=== PATIENT | female | born 1945 | race Caucasian/White ===

== ENCOUNTER → 2017-10-30 | Outpatient (CLI) | payer MEDICARE, OTHER ==
[2017-10-30 12:43] LABS: ALANINE AMINOTRANSFERASE 36 U/L (12-78); ALBUMIN 3.9 g/dL (3.4-5.0); ANION GAP 6 mmol/L (5-15); CALCIUM 8.6 mg/dL (8.5-10.1); CHLORIDE 108 mmol/L (98-107); CHOLESTEROL, TOTAL 194 mg/dL (140-239); CREATININE 0.93 mg/dL (0.55-1.02); TRIGLYCERIDES 329 mg/dL (50-200); VLDL CHOLESTEROL 66 mg/dL (0-25)
[2017-10-30 12:47] LABS: ALKALINE PHOSPHATASE 93 U/L (45-117); BILIRUBIN,TOTAL 0.5 mg/dL (0.2-1.0); HDL CHOLESTEROL (DIRECT) 37 mg/dL (40-60); TOTAL PROTEIN 7.8 g/dL (6.4-8.2)
[2017-10-30 12:48] LABS: CHOL/HDL RATIO 5.2; HDL CHOL % 19 % (28-40); LDL CHOLESTEROL,CALCULATED 91 mg/dL (54-169); LDL/HDL RATIO 2.5 (0.5-3.0)
== END | disposition home or self-care (01) ==
LOC: CFH 07:57
PROVIDERS: ATTEND Internal Medicine Cardiovascular Disease
DX: E78.2 Mixed hyperlipidemia (principal); I10 Essential (primary) hypertension
CPT/HCPCS: 36415; 80053; 80061

== ENCOUNTER 2021-05-04 09:15 | Outpatient (CLI) | payer MEDICARE, OTHER ==
[2021-05-04 09:43] LABS: ALANINE AMINOTRANSFERASE 49 U/L (12-78); ALBUMIN 4.1 g/dL (3.4-5.0); ANION GAP 7 mmol/L (5-15); CALCIUM 8.8 mg/dL (8.5-10.1); CHLORIDE 106 mmol/L (98-107); CHOLESTEROL, TOTAL 147 mg/dL (140-239); CREATININE 0.75 mg/dL (0.55-1.02)
[2021-05-04 09:45] LABS: ALKALINE PHOSPHATASE 80 U/L (45-117); BILIRUBIN,TOTAL 0.6 mg/dL (0.2-1.0); CHOL/HDL RATIO 2.8; HDL CHOL % 36 % (28-40); HDL CHOLESTEROL (DIRECT) 53 mg/dL (40-60); LDL CHOLESTEROL,CALCULATED 78 mg/dL (54-169); TOTAL PROTEIN 7.8 g/dL (6.4-8.2); TRIGLYCERIDES 78 mg/dL (50-200); VLDL CHOLESTEROL 16 mg/dL (0-25)
[2021-05-04 09:46] LABS: LDL/HDL RATIO 1.5 (0.5-3.0)
== END 2021-05-04 23:59 | disposition home or self-care (01) ==
LOC: LAB 09:15
PROVIDERS: ATTEND Internal Medicine Cardiovascular Disease
DX: I10 Essential (primary) hypertension (principal); E78.2 Mixed hyperlipidemia; E78.5 Hyperlipidemia, unspecified; I47.1 Supraventricular tachycardia
CPT/HCPCS: 36415; 80053; 80061